=== PATIENT | female | born 1985 | race Caucasian/White ===

== ENCOUNTER 2017-02-28 14:09 | Emergency (ER) | payer OTHER ==
[2017-02-28] MEDS: LIDOCAINE 2% (MDV) 20 ML INJ INJ (17:10)
[2017-02-28 17:27] LABS: URINE BLOOD (Dip) POC 1+ (NEGATIVE); URINE GLUCOSE (Dip) POC Negative (NEGATIVE); URINE KETONES (Dip) POC Negative (NEGATIVE); URINE LEUKOCYTE EST (Dip) POC Negative (NEGATIVE); URINE NITRITE (Dip) POC Negative (NEGATIVE); URINE TOTAL PROTEIN POC Trace (NEGATIVE)
[2017-02-28 17:27] LABS: URINE PH (Dip) POC 5.5 (5.0-8.5)
== END 2017-02-28 19:10 | disposition home or self-care (01) ==
LOC: FTE 14:09
DX: N75.1 Abscess of Bartholin's gland (principal); F17.210 Nicotine dependence, cigarettes, uncomplicated
CPT/HCPCS: 56420; 81003; 99284-25

== ENCOUNTER 2017-09-14 15:58 | Emergency (ER) | payer OTHER | END 2017-09-14 17:39 | disposition home or self-care (01) | LOC: FTE 15:58 | DX: S90.454A Superficial foreign body, right lesser toe(s), initial encounter (principal); F17.210 Nicotine dependence, cigarettes, uncomplicated; W45.8XXA Other foreign body or object entering through skin, initial encounter; Y92.9 Unspecified place or not applicable | CPT/HCPCS: 10120; 99283-25 ==